=== PATIENT | male | born 1960 | race Caucasian/White ===

== ENCOUNTER 2019-04-12 00:22 | Observation (INO) ==
--- NOTE | 2019-04-12 00:23 | Emergency Department Note ---
Disposition Clinical Impression: Symptomatic anemia Disposition: Admitted As Inpatient Condition: Good Referrals: Diony Sandhu DO [Primary Care Provider] - Forms: ED Satisfaction Letter Time of Disposition: 01:32 Weakness HPI - General Chief complaint: ED Weakness Stated complaint: weakness Time Seen by Provider: 04/12/19 00:23 Source: patient, family Mode of arrival: ambulatory Limitations: no limitations Nursing Notes Reviewed: Yes Vital Signs Reviewed: Yes - History of Present Illness HPI Narrative: 59-year-old male brought in by his son today for increasing weakness and shortness of breath. He states that his primary care physician emailed him tonight and told him that he was several pints of low and he was having i ncreasing weakness, he needed to come into the hospital for reevaluation. He was admitted about a month ago for anemia and GI bleed. He had a colonoscopy and EGD at that time. They did not find anything acute he had one polyp which was removed and normal. They did not find any evidence of gastritis per the patient. He was started back on his arrival to and aspirin 2 days after discharge. He had no blood or black tarry stools in his bowel movements. He states he has not had any chest pain with this. He states he just feels increasing weakness. Pt Subjective Complaint: generalized weakness/fatigue - Related Data Home Medications Medication Instructions Recorded Confirmed Rivaroxaban [Xarelto] 20 mg PO QAM 08/10/16 03/04/19 Pregabalin [Lyrica] 150 mg PO TID 03/06/18 03/04/19 Buspirone HCl [Buspar] 15 mg PO BID 03/04/19 03/04/19 Colchicine [Colcrys] 0.6 mg PO DAILY 03/04/19 03/04/19 Duloxetine HCl [Cymbalta] 60 mg PO DAILY 03/04/19 03/04/19 Metoprolol Succinate [Toprol Xl] 25 mg PO DAILY 03/04/19 03/04/19 Trazodone HCl 100 mg PO HS 03/04/19 03/04/19 Uloric 80 mg PO DAILY 03/04/19 03/04/19 Previous Rx's Medication Instructions Recorded Levothyroxine [Synthroid] 100 mcg PO DAILY@0630 #30 tablet 03/12/18 Potassium Chloride 20 meq PO DAILY #30 tab.er.prt 03/12/18 Tamsulosin [Flomax] 0.4 mg PO DAILY #30 cap.er.24h 03/12/18 Aspirin 81 mg PO DAILY #30 tab.chew 03/07/19 Omeprazole [PriLOSEC] 20 mg PO DAILY #30 cap 03/07/19 OxyCODONE/APAP 5/325 [Percocet 1 each PO Q8HR PRN 5 Days #15 03/07/19 5/325 MG] tablet Allergies Allergy/AdvReac Type Severity Reaction Status Date / Time No Known Allergies Allergy Verified 10/14/18 17:02 Review of Systems: All other systems are negative except as noted/marked Chart generated with voice recognition software Nursing notes reviewed Old records reviewed Past Medical History - Past Medical History Attestation: Yes The following information was validated with the patient. Source: patient, old records reviewed, nursing notes reviewed Medical history: Reports: atrial fibrillation (paroxysmal), coronary artery disease, other Surgical history: Reports: angioplasty/stent Psychiatric history: Reports: depression - Social History Smoking Status: Current every day smoker Smokeless Tobacco Status: No Alcohol use: Reports: none Drug use: Reports: none Physical Exam General: NAD, VSS Head: normocephalic, atraumatic Eyes: EOMI, PERRLA mouth: moist mucous membranes Neck: NO CLA, Supple Chest wall: normal rise, no crepitus, no deformity noted Lungs: moving air well, no distress Heart: RRR, no murmur Abd: soft, nontender, BS normal Rectal exam there are some nonbleeding nonthrombosed hemorrhoids. Brown soft stool no obvious blood MSK: strength equal in all four extremities Ext: moves all four extremities, no obvious deformities Skin: cap refill normal, warm, dry neuro : CN2-12 grossly intact, A&Ox3 Psych: normal affect, not anxious Course Vital Signs Temperature 98.0 F 04/12/19 00:23 Pulse Rate 64 04/12/19 00:23 Respiratory Rate 20 04/12/19 00:23 Blood Pressure 155/84 04/12/19 00:23 O2 Sat by Pulse Oximetry 94 04/12/19 00:23 Temperature 98.0 F 04/12/19 00:23 Pulse Rate 64 04/12/19 00:23 Respiratory Rate 20 04/12/19 00:23 Blood Pressure 155/84 04/12/19 00:23 O2 Sat by Pulse Oximetry 94 04/12/19 00:23 Weakness - MDM Narrative Medical decision making narrative: I explained to The patient will need to use a repeat lab work as I cannot see that labwork that was done on as an outpatient. By his Primary care physician. The last lab work I have access to is from February. He is agreeable to repeating lab work. We did do a Hemoccult as well. He is not having any belly pain at this time, we elected not to do a CAT scan at that time. His EKG did not show any ST elevation his chest x-ray was unremarkable. His hemoglobin t sameer is 8.8 which is down from 9.3 at his discharge in February however it does not extremely low and comparison. His Hemoccult was mildly positive. I spoke with Dr. Oviedo since the patient had an acute GI bleed workup recently and his hemoglobin has not dropped dramatically anything we can keep him here and do serial H&H's. I did recommend that he have Pepcid protonic before he goes to the floor. Patient understands he is being kept for symptomatically anemia and serial H&H's there is no guara ntee that he is going to get any kind of blood transfusion or iron transfusions here in the department. He understands he may not get them during his stay here but that recommendations can be made by the admitting hospitalist in the morning. - Medical Records Medical records reviewed: Yes I reviewed the patient's medical records. - Lab Data Lab results reviewed: Yes I reviewed the patient's lab results. Result diagrams: 04/12/19 00:55 04/12/19 00:55 Lab Results 04/12/19 04/12/19 04/12/19 Range/Units 00:55 00:55 00:55 WBC 7.5 (4.3-11.1) K/mcL RBC 4.45 (4.19-5.50) M/mcL Hgb 8.8 L (12.9-16.9) g/dL Hct 29.8 L (37.5-50.1) % MCV 67.0 L (83.0-100.0) fL MCH 19.8 L (28.0-33.3) pg MCHC 29.5 L (31.6-35.5) g/dL RDW 19.9 H (11.5-14.5) % Plt Count 352 (140-400) K/mcL MPV 9.2 L (9.4-12.4) fL Immature Gran % 0.5 (0-4) % Seg Neutrophils % 44.9 % Lymphocytes % 42.7 % Monocytes % 8.6 % Eosinophils % 3.0 % Basophils % 0.3 % Neutrophils # 3.4 (1.6-8.9) K/mcL Lymphocytes # 3.2 (0.6-4.6) K/mcL Monocytes # 0.6 (0.0-1.3) K/mcL Eosinophils # 0.2 (0.0-0.6) K/mcL Basophils # 0.0 (0.0-0.2) K/mcL Platelet Estimate Normal (Normal) Anisocytosis 1+ A (Not Present) Microcytosis Present A (Not Present) PT 19.9 H (9.4-12.1) Seconds INR 1.8 APTT 48.8 H (26.0-36.0) Seconds Sodium 140 (136-145) mEq/L Potassium 3.7 (3.5-5.1) mEq/L Chloride 104 (98-107) mEq/L Carbon Dioxide 25 (23-29) mEq/L BUN 15 (6-20) mg/dL Creatinine 1.09 (0.70-1.30) mg/dL Est GFR ( Amer) > 60 (> 60) Est GFR (Non-Af Amer) > 60 (> 60) BUN/Creatinine Ratio 14 (6-26) Glucose 103 (70-105) mg/dL Calculated Osmolality 291 (280-300) Calcium 8.9 (8.6-10.3) mg/dL Magnesium 2.1 (1.6-2.6) mg/dL Troponin I < 0.03 (< 0.04) ng/mL Lipase 52 (11-82) Units/L Stool Occult Blood (Negative) 04/12/19 Range/Units 01:34 WBC (4.3-11.1) K/mcL RBC (4.19-5.50) M/mcL Hgb (12.9-16.9) g/dL Hct (37.5-50.1) % MCV (83.0-100.0) fL MCH (28.0-33.3) pg MCHC (31.6-35.5) g/dL RDW (11.5-14.5) % Plt Count (140-400) K/mcL MPV (9.4-12.4) fL Immature Gran % (0-4) % Seg Neutrophils % % Lymphocytes % % Monocytes % % Eosinophils % % Basophils % % Neutrophils # (1.6-8.9) K/mcL Lymphocytes # (0.6-4.6) K/mcL Monocytes # (0.0-1.3) K/mcL Eosinophils # (0.0-0.6) K/mcL Basophils # (0.0-0.2) K/mcL Platelet Estimate (Normal) Anisocytosis (Not Present) Microcytosis (Not Present) PT (9.4-12.1) Seconds INR APTT (26.0-36.0) Seconds Sodium (136-145) mEq/L Potassium (3.5-5.1) mEq/L Chloride (98-107) mEq/L Carbon Dioxide (23-29) mEq/L BUN (6-20) mg/dL Creatinine (0.70-1.30) mg/dL Est GFR ( Amer) (> 60) Est GFR (Non-Af Amer) (> 60) BUN/Creatinine Ratio (6-26) Glucose (70-105) mg/dL Calculated Osmolality (280-300) Calcium (8.6-10.3) mg/dL Magnesium (1.6-2.6) mg/dL Troponin I (< 0.04) ng/mL Lipase (11-82) Units/L Stool Occult Blood Positive A (Negative) - Radiology Data Radiology results reviewed: Yes I reviewed the patient's radiology results. cxr neg acute process
[2019-04-12 01:01] LABS: Basophils % 0.3 %; Eosinophils # 0.2 K/mcL (0.0-0.6); Hematocrit 29.8 % (37.5-50.1); Hemoglobin 8.8 g/dL (12.9-16.9); Immature Granulocytes % 0.5 % (0-4); Lymphocytes # 3.2 K/mcL (0.6-4.6); Lymphocytes % 42.7 %; Mean Corpuscular HGB Conc 29.5 g/dL (31.6-35.5); Mean Corpuscular Hemoglobin 19.8 pg (28.0-33.3); Mean Platelet Volume 9.2 fL (9.4-12.4); Monocytes # 0.6 K/mcL (0.0-1.3); Monocytes % 8.6 %; Neutrophils # 3.4 K/mcL (1.6-8.9); Platelet Count 352 K/mcL (140-400); Red Blood Count 4.45 M/mcL (4.19-5.50); Red Cell Distribution Width 19.9 % (11.5-14.5); Segmented Neutrophils % 44.9 %; White Blood Count 7.5 K/mcL (4.3-11.1)
[2019-04-12 01:08] LABS: INR 1.8; Prothrombin Time 19.9 Seconds (9.4-12.1)
[2019-04-12 01:11] LABS: Activated Partial Thrombo Time 48.8 Seconds (26.0-36.0)
[2019-04-12 01:12] LABS: Anisocytosis 1+ (Not Present); Microcytosis Present (Not Present); Platelet Estimate Normal (Normal)
[2019-04-12 01:20] LABS: Troponin I < 0.03 ng/mL (< 0.04)
[2019-04-12 01:21] LABS: BUN/Creatinine Ratio 14 (6-26); Blood Urea Nitrogen 15 mg/dL (6-20); Calcium 8.9 mg/dL (8.6-10.3); Carbon Dioxide 25 mEq/L (23-29); Chloride 104 mEq/L (98-107); Glucose 103 mg/dL (70-105); Lipase 52 Units/L (11-82); Magnesium 2.1 mg/dL (1.6-2.6); Osmolality,Calculated 291 (280-300); Potassium 3.7 mEq/L (3.5-5.1); Sodium 140 mEq/L (136-145); eGFR For African Americans > 60 (> 60); eGFR For Non-African Americans > 60 (> 60)
[2019-04-12] MEDS ORDERED: Pantoprazole 40 MG VIAL IVP ONE (01:40)
[2019-04-12] MEDS ORDERED: Famotidine 20 MG/2 ML VIAL IVP ONE (01:40)
[2019-04-12] MEDS ORDERED: MOM Conc 10 ML UD.LIQ PO PRN (02:23)
[2019-04-12] MEDS ORDERED: Acetaminophen 325 MG TABLET PO PRN (02:23)
[2019-04-12] MEDS ORDERED: Naloxone 0.4 MG/ML INJ IVP PRN (02:23)
[2019-04-12] MEDS ORDERED: Mag Hydrox/Al Hydrox/Simeth 30 ML UDC PO PRN (02:23)
[2019-04-12] MEDS ORDERED: Ondansetron 4 MG/2 ML VIAL IVP PRN (02:23)
[2019-04-12] MEDS ORDERED: *HR* HYDROcodone/Acet 5/325 mg TABLET PO PRN (02:23)
[2019-04-12] MEDS: Albuterol 2.5 MG/3 ML NEBULIZER IH PRN ×2 (03:49→20:50)
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
[2019-04-12] MEDS: Pregabalin 75 MG CAPSULE PO SCH ×3 (10:23→20:32)
[2019-04-12] MEDS: Metoprolol XL (24 HR) Succ 25 MG TAB.ER.24H PO SCH (10:24)
[2019-04-12 11:01] LABS: Basophils % 0.4 %; Eosinophils # 0.2 K/mcL (0.0-0.6); Eosinophils % 3.1 %; Hematocrit 28.8 % (37.5-50.1); Hemoglobin 8.5 g/dL (12.9-16.9); Immature Granulocytes % 0.5 % (0-4); Lymphocytes # 2.3 K/mcL (0.6-4.6); Lymphocytes % 42.4 %; Mean Corpuscular HGB Conc 29.5 g/dL (31.6-35.5); Mean Corpuscular Volume 67.8 fL (83.0-100.0); Mean Platelet Volume 9.3 fL (9.4-12.4); Monocytes # 0.5 K/mcL (0.0-1.3); Monocytes % 9.3 %; Neutrophils # 2.4 K/mcL (1.6-8.9); Platelet Count 338 K/mcL (140-400); Red Blood Count 4.25 M/mcL (4.19-5.50); Segmented Neutrophils % 44.3 %; White Blood Count 5.5 K/mcL (4.3-11.1)
[2019-04-12 11:13] LABS: Uric Acid 4.6 mg/dL (2.3-7.6)
[2019-04-12 11:17] LABS: Thyroid Stimulating Hormone 3.964 mcIU/mL (0.340-5.600)
[2019-04-12] MEDS ORDERED: SODIUM CHLORIDE 0.9% IVPB ONE (11:30)
[2019-04-12] MEDS ORDERED: IRON DEXTRAN COMPLEX IVPB ONE (11:30)
[2019-04-12 11:32] LABS: Anisocytosis 1+ (Not Present); Hypochromasia Present (Not Present); Polychromasia 1+ (Not Present)
[2019-04-12 11:33] LABS: Platelet Estimate Normal (Normal)
[2019-04-12 15:01] LABS: Bilirubin,Urine Negative (Negative); Blood,Urine Negative (Negative); Clarity,Urine Clear (Clear); Color,Urine Yellow (Yellow); Glucose,Urine (UA) Normal (Normal); Ketones,Urine Negative (Negative); Leukocyte Esterase,Urine Trace (Negative); Nitrite,Urine Negative (Negative); Protein,Urine Negative (Neg-Trace); Urobilinogen,Urine Normal (Normal)
[2019-04-12 15:14] LABS: Bacteria,Urine Few per hpf (None-Few); RBC,Urine 0-3 per hpf (0-3); Squamous Epithelial Cell,Urine Few per lpf (None-Few)
[2019-04-12 18:43] LABS: Basophils % 0.3 %; Eosinophils # 0.1 K/mcL (0.0-0.6); Eosinophils % 2.4 %; Hematocrit 29.2 % (37.5-50.1); Hemoglobin 8.6 g/dL (12.9-16.9); Immature Granulocytes % 0.3 % (0-4); Lymphocytes # 2.1 K/mcL (0.6-4.6); Mean Corpuscular HGB Conc 29.5 g/dL (31.6-35.5); Mean Corpuscular Hemoglobin 19.9 pg (28.0-33.3); Mean Corpuscular Volume 67.4 fL (83.0-100.0); Mean Platelet Volume 9.2 fL (9.4-12.4); Monocytes # 0.4 K/mcL (0.0-1.3); Neutrophils # 3.1 K/mcL (1.6-8.9); Platelet Count 340 K/mcL (140-400); Red Blood Count 4.33 M/mcL (4.19-5.50); Red Cell Distribution Width 20.2 % (11.5-14.5); White Blood Count 5.8 K/mcL (4.3-11.1)
[2019-04-12 19:13] LABS: Anisocytosis 1+ (Not Present); Hypochromasia Present (Not Present); Microcytosis Present (Not Present)
[2019-04-12 19:14] LABS: Platelet Estimate Normal (Normal); Polychromasia 1+ (Not Present)
[2019-04-12] MEDS ORDERED: traZODone 50 MG TABLET PO SCH (21:00)
[2019-04-12 21:34] LABS: Iron < 10 mcg/dL (65-175); Transferrin 340 mg/dL (203-362)
[2019-04-12 21:41] LABS: Ferritin 10 ng/mL (20-250)
[2019-04-12 21:55] LABS: Folate 22.1 ng/mL (3.0-16.0)
[2019-04-13 06:40] VITALS: BP 148/72
[2019-04-13] MEDS: Pregabalin 75 MG CAPSULE PO SCH (08:44)
[2019-04-13] MEDS: Metoprolol XL (24 HR) Succ 25 MG TAB.ER.24H PO SCH (08:45)
[2019-04-13] MEDS ORDERED: Cyanocobalamin (B-12) 1,000 MCG/ML VIAL IM ONE (09:29)
--- NOTE | 2019-04-13 09:38 | Discharge Summary ---
Orders not resulted at time of discharge: Pending orders 04/12/19 14:45 Culture,Urine [RM] Stat Date of Encounter: 04/13/19 Time of Encounter: 09:29 - Discharge Diagnosis (1) Microcytic anemia Priority: Primary Status: Acute (2) B12 deficiency Priority: Secondary Status: Acute (3) Gout Priority: Secondary Status: Chronic Qualifiers: Gout site: unspecified site Gout etiology: unspecified cause Chronicity: chronic Presence of tophus: without tophus Qualified Code(s): M1A.9XX0 - Chronic gout, unspecified, without tophus (tophi) (4) Essential hypertension Priority: Secondary Status: Chronic (5) Hypothyroidism Priority: Secondary Status: Chronic Qualifiers: Hypothyroidism type: unspecified Qualified Code(s): E03.9 - Hypothyroidism, unspecified (6) CAD (coronary artery disease) Priority: Secondary Status: Chronic Qualifiers: Coronary Disease-Associated Artery/Lesion type: [place] artery [place] vs. transplanted heart: [place] heart Associated angina: without angina Qualified Code(s): I25.10 - Atherosclerotic heart disease of [place] coronary artery without angina pectoris (7) PAF (paroxysmal atrial fibrillation) Priority: Secondary Status: Chronic Hospital course: Mr. Sullivan is a 59 year old male who was directed to go to emergency room by his PCP office staff after hemoglobin was found to be low on labs done as outpatient April 10. Hemoglobin was confirmed to be low at 8.8 in emergency room. Stool was found Hemoccult positive. He had microcytosis. He was admitted to [facility] floor for ongoing care needs. Initial orders were written by the emergency room physician. I saw him on April 12 and performed a history and physical. Anemia testing showed iron < 10, transferrin 340, ferritin 10, B12 158, and folate 22.1. He was given iron dextran infusion. He was also given a B12 injection and started on oral B12 supplement. I explained he would have decreased absorption of oral iron due to PPI use. He will continue oral B12 supplement at discharge. Stool returned positive for occult blood. Aspirin will be held until April 15 then restarted at a dose of 81 mg every other day. He will restart Xarelto at discharge. His PCP can monitor labs and order further workup as indicated. TSH returned normal at 3.964. Uric acid level returned satisfactory at 4.6. On April 13 he felt improved and stable for discharge home. He will follow with his PCP Dr. Sandhu within 1 week. Room air oximetry will be checked on 6 minute walk prior to discharge. - Time Spent with Patient Total time spent providing and/or coordinating discharge services: - Discharge Medications Prescriptions: New Cyanocobalamin (B-12) [Vitamin B12] 1,000 mcg PO DAILY #30 tablet Continued Pregabalin [Lyrica] 150 mg PO TID Tamsulosin [Flomax] 0.4 mg PO DAILY #30 cap.er.24h Levothyroxine [Synthroid] 100 mcg PO DAILY@0630 #30 tablet Metoprolol Succinate [Toprol Xl] 25 mg PO DAILY Uloric 80 mg PO DAILY Trazodone HCl 100 mg PO HS Duloxetine HCl [Cymbalta] 60 mg PO DAILY Buspirone HCl [Buspar] 15 mg PO BID Colchicine [Colcrys] 0.6 mg PO DAILY Omeprazole [PriLOSEC] 20 mg PO DAILY #30 cap Rivaroxaban [Xarelto] 20 mg PO QAM Albuterol Sulfate [Proair Hfa] 2 puff PO Q4HR PRN PRN Reason: Shortness Of Breath/Wheezing Changed Aspirin 81 mg PO Q48H #30 tab.chew Home Medications: Rivaroxaban [Xarelto] 20 mg PO QAM 08/10/16 [History] Pregabalin [Lyrica] 150 mg PO TID 03/06/18 [History] Levothyroxine [Synthroid] 100 mcg PO DAILY@0630 #30 tablet 03/12/18 [Rx] Tamsulosin [Flomax] 0.4 mg PO DAILY #30 cap.er.24h 03/12/18 [Rx] Buspirone HCl [Buspar] 15 mg PO BID 03/04/19 [History] Colchicine [Colcrys] 0.6 mg PO DAILY 03/04/19 [History] Duloxetine HCl [Cymbalta] 60 mg PO DAILY 03/04/19 [History] Metoprolol Succinate [Toprol Xl] 25 mg PO DAILY 03/04/19 [History] Trazodone HCl 100 mg PO HS 03/04/19 [History] Uloric 80 mg PO DAILY 03/04/19 [History] Omeprazole [PriLOSEC] 20 mg PO DAILY #30 cap 03/07/19 [Rx] Albuterol Sulfate [Proair Hfa] 2 puff PO Q4HR PRN 04/12/19 [History] Aspirin 81 mg PO Q48H #30 tab.chew 04/13/19 [Rx] Cyanocobalamin (B-12) [Vitamin B12] 1,000 mcg PO DAILY #30 tablet 04/13/19 [Rx] Allergies/Adverse Reactions: Allergy/AdvReac Type Severity Reaction Status Date / Time No Known Allergies Allergy Verified 10/14/18 17:02 Date of admission: 04/12/19 01:53 Primary care physician: Diony Sandhu DO - Constitutional Vitals: Temp Pulse Resp BP Pulse Ox 97.8 F 69 20 148/72 96 04/13/19 06:38 04/13/19 06:38 04/13/19 06:38 04/13/19 06:38 04/13/19 06:38 - Patient Status Disposition: Home, Self-Care Condition: Good - Discharge Instructions Follow Up With: Diony Sandhu DO [Primary Care Provider] - 1 week - Diet and Activity Activity: resume usual activities as tolerated Diet: advance to your usual diet
--- NOTE | 2019-04-14 17:02 | Electrocardiograph Report ---
[address] [address] Test Date: 2019-04-12 Pat Name: Jaguar Sullivan Department: EDP-12 Room: [facility] Gender: M Political Director: : 1960 Requested By: Mildred Ariza Order Number: [id number] Reading MD: Redd Osorio Measurements Intervals [place] Rate: 64 P: 40 MT: 183 QRS: 54 QRSD: 100 T: 72 QT: 408 QTc: 421 Interpretive Statements Sinus rhythm Electronically Signed On 04-14-2019 17:01:00 EDT by Redd Osorio
== END 2019-04-13 10:58 | disposition home or self-care (01) ==
LOC: INPPIK 00:22 → EMEROOPIK 00:22 → INPPIK 02:27
PROVIDERS: ADMIT Internal Medicine; ATTEND Internal Medicine